=== PATIENT | male | born 1995 ===

== ENCOUNTER 2017-04-14 15:57 | Emergency (ER) | payer OTHER, MEDICAID ==
[2017-04-14 16:07] VITALS: BMI 20.2
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
[2017-04-14] MEDS ORDERED: Morphine 2 mg/ml ISec IVP STA (16:25)
[2017-04-14] MEDS ORDERED: TDAP Vaccine 0.5 mL Syr IM ONE (16:25)
[2017-04-14 16:33] VITALS: RESP 18; TEMP 99
[2017-04-14 16:59] LABS: ALB/GLOB RATIO 1.7 (1.1-1.8); ALKALINE PHOSPHATASE 96 U/L (38-126); ALT/SGPT 36 U/L (7-56); AST/SGOT 45 U/L (17-59); BILIRUBIN,TOTAL 1.2 mg/dL (0.2-1.3); BLOOD UREA NITROGEN 16 mg/dL (7-21); CALCIUM 10.4 mg/dL (8.4-10.5); CARBON DIOXIDE 32 mmol/L (21-33); CHLORIDE 101 mmol/L (98-107); GFR AFRICAN-AMERICAN > 60; GLUCOSE,RANDOM 89 mg/dL (70-110); POTASSIUM 4.7 mmol/L (3.6-5.0); SODIUM 145 mmol/L (132-148); TOTAL PROTEIN 8.3 g/dL (5.8-8.3)
[2017-04-14 17:03] LABS: BASO # 0.04 K/mm3 (0.0-2.0); BASO % 0.5 % (0.0-3.0); EOS # 0.3 (0.0-0.7); EOS % 3.8 % (1.5-5.0); GRAN # 5.74 (1.4-6.5); GRAN % 66.7 % (50.0-68.0); HEMATOCRIT 43.2 % (42.0-52.0); LYMPH # 1.9 (1.2-3.4); LYMPH % 22.1 % (22.0-35.0); MEAN CELL VOLUME 87.8 fl (80.0-105.0); MEAN CORPUSCULAR HEMOGLOBIN 32.7 pg (25.0-35.0); MEAN CORPUSCULAR HGB CONC 37.3 g/dl (31.0-37.0); MEAN PLATELET VOLUME 10.1 fl (7.0-11.0); MONO # 0.6 (0.1-0.6); MONO % 6.9 % (1.0-6.0); WHITE BLOOD COUNT 8.6 10^3/ul (4.5-11.0)
[2017-04-14] MEDS ORDERED: Iohexol 350 MG/100 ML VIAL ONE (17:37)
[2017-04-14 18:02] VITALS: BP 110/66; PULSE 92; O2SAT 99
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
--- NOTE | 2017-04-15 08:53 | RAD ---
HISTORY: medical clearance COMPARISON: No prior. TECHNIQUE: Chest PA and lateral FINDINGS: LUNGS: No active pulmonary disease. PLEURA: No significant pleural effusion identified. No pneumothorax apparent. CARDIOVASCULAR: Normal. OSSEOUS STRUCTURES: Suspect small osteoma or bone island left humeral head VISUALIZED UPPER ABDOMEN: Normal. OTHER FINDINGS: None. IMPRESSION: No active disease.
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
--- NOTE | 2017-04-15 09:01 | RAD ---
PROCEDURE: Left ribs HISTORY: medical clearance COMPARISON: Not available TECHNIQUE: Three views of left ribs are submitted. There is no accompanying plain chest radiograph. FINDINGS: There is no left rib fracture identified. IMPRESSION: No evidence of left rib fracture
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
== END 2017-04-14 19:15 | disposition left against medical advice (07) ==
LOC: ED 15:57
DX: S00.01XA Abrasion of scalp, initial encounter (principal); S00.03XA Contusion of scalp, initial encounter; V49.9XXA Car occupant (driver) (passenger) injured in unspecified traffic accident, initial encounter; Z23 Encounter for immunization
CPT/HCPCS: 70450; 71020; 71100; 71260; 73030; 73502; 73610; 74177; 80053; 85025; 90471; 90715; 96374; 96375; 99285; J2270; J2405; Q9967

== ENCOUNTER 2017-11-26 00:17 | Emergency (ER) | payer SELFPAY ==
[2017-11-26 00:17] VITALS: BMI 20.2
[2017-11-26] MEDS ORDERED: Sodium Chloride 0.9% 1,000 ML IV STA (00:48)
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
[2017-11-26 01:18] LABS: BASO # 0.03 K/mm3 (0.0-2.0); BASO % 0.3 % (0.0-3.0); EOS # 0.4 (0.0-0.7); GRAN # 6.46 (1.4-6.5); GRAN % 64.7 % (50.0-68.0); HEMOGLOBIN 15.6 g/dL (14.0-18.0); LYMPH # 2.6 (1.2-3.4); LYMPH % 26.4 % (22.0-35.0); MEAN CELL VOLUME 86.1 fl (80.0-105.0); MEAN CORPUSCULAR HGB CONC 37.1 g/dl (31.0-37.0); MEAN PLATELET VOLUME 9.8 fl (7.0-11.0); MONO # 0.5 (0.1-0.6); MONO % 4.6 % (1.0-6.0); RBC 4.88 10^6/uL (3.5-6.1); RED CELL DISTRIBUTION WIDTH 12.2 % (11.5-14.5)
[2017-11-26 01:26] LABS: INR 1.06 (0.93-1.08); PARTIAL THROMBOPLASTIN TIME 35.4 Seconds (25.1-36.5); PROTHROMBIN TIME 12.1 SECONDS (9.4-12.5)
[2017-11-26 01:37] LABS: ALB/GLOB RATIO 1.6 (1.1-1.8); ALBUMIN 4.7 g/dL (3.0-4.8); ALT/SGPT 23 U/L (7-56); AST/SGOT 31 U/L (17-59); BLOOD UREA NITROGEN 14 mg/dL (7-21); GFR AFRICAN-AMERICAN > 60; GFR NON-AFRICAN AMERICAN > 60
[2017-11-26 01:47] LABS: TROPONIN I < 0.01 ng/mL
[2017-11-26 01:59] LABS: ACETAMINOPHEN < 10.0 ug/ml (10.0-20.0); SALICYLATE < 1 mg/dL (2.0-20.0)
[2017-11-26 03:28] VITALS: BP 122/78; PULSE 68; RESP 12; TEMP 97.8; O2SAT 98
--- NOTE | 2017-11-26 10:31 | CARD ---
APPROVED REPORT EKG Measurement Heart [id number] <Conclusion> Normal sinus rhythm Possible Left atrial enlargement RSR' or QR pattern in V1 suggests right ventricular conduction delay ST & T wave abnormality, consider anterior ischemia Abnormal ECG
== END 2017-11-26 03:26 | disposition home or self-care (01) ==
LOC: ED 00:17
DX: F11.10 Opioid abuse, uncomplicated (principal); R11.2 Nausea with vomiting, unspecified; F17.210 Nicotine dependence, cigarettes, uncomplicated
CPT/HCPCS: 80053; 82550; 83615; 83735; 84484; 85025; 85610; 85730; 90791; 93005; 96374; 99283; G0480; J2405; J7040